=== PATIENT | female | born 1935 | race Caucasian/White ===

== ENCOUNTER 2016-09-17 01:42 | Inpatient (IN) | payer OTHER ==
[~2016-09-17] VITALS: Ht 152.4 cm; Wt 64.4 kg
[~2016-09-17 01:42] MED LIST: AFEDITAB CR30 MG PO; CALCIUM1 TAB PO; COLACE100 MG PO; LISINOPRIL20 MG PO; MELOXICAM7.5 M1 PO; OMEPRAZOLE40 MG PO; SIMVASTATIN80 MG PO; VICODIN7.5-300 PO; VITAMIN D1000 IU PO; VITAMIN D31000 UNI1 PO; ZANAFLEX2 M2 PO
--- NOTE | 2016-09-17 06:27 | Admission Core Measures ---
Acute Coronary Syndrome Inclusion Criteria ACS Diagnosis No Inpatient Core Measures LDL Reminder: If No, please order W/I first 24hr of stay Congestive Heart Failure Inclusion Criteria CHF Diagnosis No Cerebrovascular accident Inclusion Criteria CVA/TIA Diagnosis No Inpatient Core Measures Bedside Swallow Eval Reminder: If BSE failed, place ST order Antithrombotic Reminder: Order Antithrombotic Medication by end of day 2 Antithrombotic Reminder: Document Reason Antithrombotic Not ordered by end of day 2 AFIB/Flutter Reminder: If Present, add to problem list AFIB/Flutter Reminder: Order Anticoag Medication for pts with AFIB/Flutter Atherosclerosis Reminder: If Present, add to problem list LDL Reminder: If No, please order W/I first 24hr of stay PT Order Reminder: If No, please order Venous thromboembolism Inpatient Core Measures VTE Risk Factors: Age > 40, [facility] prophylaxis d/t No contraindications No VTE Pharm Prophylaxis d/t No contraindications Inclusion Criteria - Per Current guidelines, there needs to be overlap - treatment for the first 5 days of Warfarin therapy. - Parenteral Anticoagulation (IV or SC) needs to be - given along with Warfarin therapy. VTE Diagnosis No VTE Type NONE VTE Confirmed by (Test) NONE Problem List As ranked by this Provider includes Assessment & Plan 1. Rectal prolapse 2. GERD (gastroesophageal reflux disease) 3. Hypertension HOME MEDS Home Med List Calcium/Sodium (Calcium) 1 TAB TAB 1 TAB PO DAILY SUPPLEMENT (Reported) Cholecalciferol (Vitamin D3) (Vitamin D3) (Unknown Strength) CAPSULE (Unknown Dose) PO DAILY SUPPLEMENT (Reported) HYDROCODONE/ACETAMINOPHEN (Hydrocodon-Acetaminophen 5-325) 5 MG-325 MG TABLET 1 TAB PO TID PRN PAIN (Reported) Lisinopril 20 MG TABLET 1 TAB PO DAILY BP (Reported) Omeprazole 40 MG CAPSULE.DR 1 CAP PO DAILY HEARTBURN (Reported) Simvastatin (Zocor) 80 MG TABLET 1 TAB PO DAILY CHOLESTEROL (Reported)
--- NOTE | 2016-09-17 12:27 | Patient Discharge Instructions ---
Discharge Instructions General Discharge Information You were seen/treated for: Rectal prolapse, recurrent You had these procedures: Altemeier procedure (09/17/16) Watch for these problems: fever>101.3, increased pain, increased drainage Special Instructions: continue stool softener three times daily Diet Continue normal diet: Yes Recommended Diet: Regular Activity Full Activity/No Limits: No Activity Self Limited: Yes Pounds, do NOT lift more than: 10 Other activity limits: no heavy lifting. no strenuous activity. Acute Coronary Syndrome Inclusion Criteria At DC or during hospital stay patient has or had the following: ACS DIAGNOSIS No Discharge Core Measures Meds if any: Prescribed or Continued at Discharge Meds if any: NOT Prescribed or Continued at Discharge Congestive Heart Failure Inclusion Criteria At DC or during hospital stay patient has or had the following: CHF DIAGNOSIS No Discharge Core Measures Meds if any: Prescribed or Continued at Discharge Meds if any: NOT Prescribed or Continued at Discharge Cerebrovascular accident Inclusion Criteria At DC or during hospital stay patient has or had the following: CVA/TIA Diagnosis No Discharge Core Measures Meds if any: Prescribed or Continued at Discharge Meds if any: NOT Prescribed or Continued at Discharge Venous thromboembolism Inclusion Criteria VTE Diagnosis No VTE Type NONE VTE Confirmed by (Test) NONE Discharge Core Measures - Per Current guidelines, there needs to be overlap - treatment for the first 5 days of Warfarin therapy. - If discharged on Warfarin prior to 5 days of - overlap therapy, the patient will need to be - assessed for post discharge needs including - *Post discharge parental anticoagulation - *Warfarin and/or parental anticoagulation education - *Follow up date to check INR post discharge At least 5 days overlap therapy as Inpatient No Meds if any: Prescribed or Continued at Discharge Note: Overlap Therapy is Warfarin and Anticoagulant Meds if any: NOT Prescribed or Continued at Discharge
[2016-09-17] MEDS ORDERED: NORCO 5-325 TA1 EACH PO (12:29)
[2016-09-17] MEDS ORDERED: COLACE100 M1 PO (12:30)
[2016-09-17 13:40] VITALS: BP 130/70
--- NOTE | 2016-09-17 14:51 | Operative Report ---
Operative/Inv Procedure Report Surgery Date: 09/17/16 Name of Procedure: Alteimier transanal repair of rectal prolapse Pre-Operative Diagnosis: Recurrent rectal prolapse Post-Operative Diagnosis: Recurrent rectal prolapse Estimated Blood Loss: less than 50ml Surgeon/[employer] Engineer: STEVE HOGAN JR, DO Anesthesia: laryngeal mask airway, block Monitors: Per routine Implants: None Drains: Roman catheter Specimens: Rectum 2 pieces Complications: None Condition: Good Operative Indication: This is an 80-year-old female with history of rectal prolapse. She had previous transanal repair. Unfortunately she has developed recurrent disease which becoming increasingly symptomatic. We discussed treatment options and decided to do a repeat Altmeirier procedure Operative/Procedure Note Note: On the day before her operation she did a clear liquid diet and oral antibiotics. On the morning of her procedure she did a Fleet's enema prior to coming to the hospital. She was taken into the operating room where she received IV antibiotics prior to induction of general anesthesia. She underwent induction of general anesthesia placement of laryngeal mask airway and was Converted to lithotomy position in [facility]. A Roman catheter was placed and the perineum was then prepped and draped in usual fashion. An anal block was performed using 0.5% Marcaine with epinephrine. A total of 30 mL was injected. Next Lamar retractor was used to norm the anal canal. The rectum was then easily prolapsed and grasped with T clamps. I chose my transection site her previous scar line. The tissue was then divided layer by layer using electrocautery into a full-thickness incision had been circumferentially made around the bowel. As the patient had previous resection there was no true residual rectum. The tissue that occupied the rectal space was actually sigmoid colon. Nasal colon was then sequentially ligated and divided in bundles using the LigaSure device. After completely dividing the mesentery at the proposed level of transection I noticed some bleeding from the posterior rectal space. Some tissue here was cauterized and a Surgicel was placed this location and a laparoscopic tape was then used to place gentle pressure. I chose my proximal site of transection and then divided the bowel in the midline to the level of the proposed transection. [id number] stitch was then used to secure the bowel and the anterior midline to the anal canal I then divided the bowel in the posterior midline essentially bivalving the the neorectum. Once again a tacking suture was placed this time of the posterior midline tacking the bowel that was staying to the anal canal. I then excised the left wing of the bivalved neorectum. The lap tape was then removed. A handsewn coloanal anastomosis was then performed with interrupted 2-0 Vicryl suture. The suture was placed approximately every 3 mm. I excised the right wing of the neorectum and completed the handsewn coloanal anastomosis with interrupted 2-0 Vicryl suture. After carefully inspecting the suture line both visually and with tactile sensation I was convinced that this was an airtight, sound anastomosis. The Lamar retractor was then removed. A rigid sigmoidoscopy was then performed to about 20 cm. The colon cephalad to the anastomosis was very pink and healthy all the way to the level of the anastomosis. The anastomosis appeared intact and healthy. The sigmoidoscope was removed. And at this point the procedure was concluded. The perineum was cleansed and dried. A dry bulky dressing was applied. The patient was converted to the supine position and next abated in the operating room. Patient tolerated the procedure well. Patient was taken to the recovery room in good condition. At the end was operational needle sponges and measurements were accounted for. Findings: Healthy coloanal anastomosis Discharge Disposition: Same Day Admissions
--- NOTE | 2016-09-17 15:00 | PN- General Surgery ---
Subjective Subjective: POD #1 s/p Altemeier Procedure Pt has no major complaints. She had some nausea and discomfort in pacu, but much improved at this time. Pain is reasonably controlled. She was also hypertensive into the low 170s systolic, which has also improved. Nothing by mouth as of yet. No flatus or BM. Chavez catheter remains in place. Otherwise denies CASPER, dizziness , CP, SOB. Objective Vital Signs and I&Os Vitals: BP 130/70, HR 78, R 18, Sat 98% on 2L O2 via nasal cannula. Urine output: 135 in OR, 60 in pacu, 70 since pacu over the past hour. Intake & Output / 1600 09/17 0800 09/17 0000 09/16 1600 09/16 0800 09/16 0000 Intake Total Output Total Balance Patient 142 lb Weight Physical Exam: General: Pt is awake and alert. NAD. Cardiac: RRR Pulm: CTA bilaterally. Abdomen/rectal: Soft, mildly distended. Nontender. Surgical dressing contains a small to moderate amount of serosanginous drainage. No blood or stool noted. Hypoactive BS heard. Ext: No significant edema or calf tenderness appreciated bilaterally. Assessment/Plan Assessment/Plan Pt is an 80 yo F who is now POD #0 s/p Altemeier Procedure for recurrent rectal prolapse. She remains stable from a surgical standpoint. Plan: -Clear liquid diet for now. Advance as tolerated and with bowel function. -IVF @100/hr. Will heplock when tolerating adequate po and U/O >300 mL per shift. -Leave chavez catheter in place overnight. Monitor I/o's. -Pain control with vicodin or morphine as needed. -ancef and flagyl for antibiotic surgical ppx. -hep sc for dvt ppx. -colace TID for bowel regimen. -home meds resumed. -expect dc home likely tomorrow if pt progresses as expected. Core Measures/Miscellaneous Chavez Catheter Date In: 09/17/16 Still Needed? Yes Venous Thromboembolism VTE Risk Factors: Age > 40, Surgery VTE Contraindications: No Contraindications VTE Diagnosis: No VTE Type: NONE VTE Confirmed by (Test): NONE Beta Chyna Is Beta Chyna a Home Med? No Antibiotics Is Patient on Antibiotics? Yes If Yes: prophylaxis
[2016-09-17 18:05] VITALS: BP 112/70
[2016-09-17 20:10] VITALS: BP 128/70
[2016-09-17 22:53] VITALS: BP 118/60
[2016-09-18 02:15] VITALS: BP 114/60
[2016-09-18 06:43] VITALS: BP 114/64
--- NOTE | 2016-09-18 08:06 | PN- General Surgery ---
Subjective Subjective: POD #1 s/p altemeier procedure for rectal prolapse. Resting comfortably in bed. Roman removed this morning, states she feels urge to void. No complaints of abdominal pain or rectal pain although had some pain early this morning. Yet to ambulate. Objective Vital Signs and I&Os Vital Signs Date Time Temp Pulse Resp B/P Pulse O2 O2 Flow FiO2 Ox Delivery Rate 09/18 0643 98.2 104 19 114/64 90 Room Air 09/18 0215 98.0 89 20 114/60 92 Room Air 09/17 2253 98.0 67 18 118/60 92 Room Air 09/17 2009 97.1 91 16 128/70 94 Room Air 09/17 1805 97.4 85 20 112/70 96 Nasal 3.0L Cannula 09/17 1600 Nasal 2.0L Cannula 09/17 1345 98 Nasal 3.0L Cannula 09/17 1340 98.0 78 18 130/70 98 Nasal 3.0L Cannula Intake & Output 09/18 1600 09/18 0800 09/18 0000 09/17 1600 09/17 0800 09/17 0000 Intake Total 1100 1760 580 Output Total 650 300 150 Balance 450 1460 430 Intake, IV 800 800 100 Intake, Oral 300 960 480 Number 0 Bowel Movements Output, Urine 650 300 150 Patient 142 lb Weight Physical Exam: Gen: AAOx3 in NAD Cor: S1+S2+ Lungs: CTA ana Abd: soft, NT, ND, +BS x4 Ext: no edema or calf tenderness to ana lower extremities. : rectal dressing removed due to serous/ old sanguinous drainage. No surrounding erythema or drainage noted. Current Medications: Current Medications Sig/Franco Start time Last Medication Dose Route Stop Time Status Admin Acetaminophen 650 MG Q6P PRN 09/17 1345 AC PO Acetaminophen/ 1 TAB Q4P PRN 09/17 1345 AC Hydrocodone Bitart PO Acetaminophen/ 2 TAB Q4P PRN 09/17 1345 AC 09/18 Hydrocodone Bitart PO 0556 Atorvastatin Calcium 20 MG 1700 09/17 1700 AC 09/17 PO 1622 Cefazolin Sodium 1,000 MG IQ8 09/17 1700 DC 09/18 IV 09/18 0001 0011 Dextrose/Sodium 1,000 ML Q10H 09/17 1345 DC 09/18 Chloride IV 0011 Docusate Sodium 100 MG TID 09/17 1600 AC 09/17 PO 2117 Fentanyl Citrate 100 MCG .STK-MED ONE 09/17 1044 DC IM 09/17 1045 Heparin Sodium 5,000 UNIT Q8 09/17 2200 AC 09/18 (Porcine) SC 0539 Hydromorphone HCl 2 MG .STK-MED ONE 09/17 1044 DC IM 09/17 1045 Lisinopril 20 MG DAILY 09/18 1000 AC PO Metronidazole 500 MG IQ8 09/17 1700 DC 09/18 N/A 1 UNIT IV 09/18 0059 0011 Morphine Sulfate 2 MG Q4-6 PRN PRN 09/17 1345 AC IV Omeprazole 40 MG DAILY AC 09/18 0700 AC 09/18 PO 0539 Ondansetron HCl 4 MG Q6P PRN 09/17 1345 AC 09/17 IV 2207 Results Last 48 Hours of Labs: Laboratory Tests 09/18 0613 Chemistry Sodium Pending Potassium Pending Chloride Pending Carbon Dioxide Pending Anion Gap Pending BUN Pending Creatinine Pending BUN/Creatinine Ratio Pending Hematology CBC w Diff Pending WBC Pending RBC Pending Hgb Pending Hct Pending MCV Pending MCH Pending RDW Pending Plt Count Pending MPV Pending PUBS MCHC Pending Assessment/Plan Assessment/Plan A: POD #1 s/p altemeier procedure for rectal prolapse; slightly tachy this morning- patient states she was in pain last night, otherwise, vitals stable. Roman removed earlier. Plan: Patient ambulated to bathroom during interview- has voided. Ambulating with assist of 1. May need PT eval prior to discharge if still feels unsteady. F/U morning labs. IV fluids stopped. Diet to be advanced to low residue for now. Likely d/c later today. Core Measures/Miscellaneous Roman Catheter Date In: 09/17/16 Venous Thromboembolism VTE Risk Factors: Age > 40, Surgery VTE Contraindications: No Contraindications VTE Diagnosis: No VTE Type: NONE VTE Confirmed by (Test): NONE Beta Chyna Is Beta Chyna a Home Med? No Antibiotics Is Patient on Antibiotics? Yes If Yes: prophylaxis
[2016-09-18 08:15] LABS: ABSOLUTE BASOPHIL COUNT 0 /CUMM (0.0-0.2); ABSOLUTE EOSINOPHIL COUNT 0.1 /CUMM (0.0-0.7); ABSOLUTE GRANULOCYTE CT 4.8 /CUMM (1.4-6.5); ABSOLUTE LYMPH COUNT 1.4 /CUMM (1.2-3.4); ABSOLUTE MONOCYTE COUNT 0.9 /CUMM (0.10-0.60); BASOPHIL % 0.4 % (0.0-2.0); EOSINOPHIL % 0.9 % (0-5); GRANULOCYTE % 66.4 % (42.2-75.2); HEMATOCRIT 33.7 % (37-47); MEAN CORPUSCULAR HGB 26.2 PG (27.0-31.0); MEAN CORPUSCULAR HGB CONC 32.4 G/DL (33.0-37.0); MEAN CORPUSCULAR VOLUME 80.7 FL (81.0-99.0); MEAN PLATELET VOLUME 11.4 FL (7.4-10.4); PLATELET COUNT 137 /CUMM (130-400); RBC DISTRIBUTION WIDTH 14.8 % (11.5-14.5); RED BLOOD CELL CT 4.18 /CUMM (4.20-5.40); WHITE BLOOD CELL COUNT 7.2 /CUMM (4.8-10.8)
[2016-09-18 09:05] VITALS: BP 130/70
--- NOTE | 2016-09-18 10:08 | Surg Short-stay <48hrs Dis Sum ---
Visit Information Visit Dates Admission Date: 09/17/16 Discharge Date: 09/18/16 Surgical Short Stay DC Summary Admission Diagnosis: RECTAL PROLAPSE Final Diagnosis: SAME Procedure(s): ALTEMEIER PROCEDURE Summary/Significant Findings: Mrs. Childress is an 80 year old female with a history of rectal prolapse, having altemeier procedures in the past. Her prolapse recurred and was taken to the OR electively on 09/17/16 after undergoing a 3rd altemeier procedure. She tolerated clear liquids and her diet was advanced to low residue. She was discharged on POD #1 after an uneventful hospital stay home, with outpatient follow-up with Dr. Rolando Rosales. Condition at Discharge: stable Discharge Disposition: home or self care Discharge instructions provided to patient/family: Yes Post discharge follow-up plan: Dr. Rolando Rosales
== END 2016-09-18 11:15 | DRG 334 ==
LOC: ENRESERVTM → ENRESERVDT → SDA 01:42 → ENPENDDIS 01:42 → SDA 08:00 → 2NA 13:42
PROVIDERS: Physician Assistant; ADMIT Colon & Rectal Surgery
PROC: 0DTP0ZZ Resection of Rectum, Open Approach (ICD-10-PCS; principal; 2016-09-17)
DX: K62.3 Rectal prolapse (principal); E11.9 Type 2 diabetes mellitus without complications; I10 Essential (primary) hypertension; E78.5 Hyperlipidemia, unspecified; M85.80 Other specified disorders of bone density and structure, unspecified site; K21.9 Gastro-esophageal reflux disease without esophagitis; Z87.891 Personal history of nicotine dependence; M19.90 Unspecified osteoarthritis, unspecified site; Z79.84 Long term (current) use of oral hypoglycemic drugs
CPT/HCPCS: 2NASP; 36415; 82436; 87086; 88307; J0131; J0690; J1644; J2270; J2405; J7042